=== PATIENT | male | born 1965 | race African-American/Black ===

== ENCOUNTER 2020-02-09 08:09 | Inpatient (IN) ==
[2020-02-09 09:20] LABS: Basophils % 0.6 % (0.0-0.8); Eosinophils # 0.1 10*3/uL (0.0-0.87); Eosinophils % 1.8 % (0.00-10.9); Hematocrit 38.4 VOL% (42.0-52.0); Hemoglobin 11.6 GM/DL (14.0-18.0); Immature Granulocytes % 0.2 %; Immature Granulocytes Absolute 0.01 #; Lymphocytes # 1.3 10*3/uL (1.4-4.0); Lymphocytes % 25.1 % (21.2-54.2); Mean Corpuscular HGB Conc 30.2 GM/DL (32-36); Mean Corpuscular Volume 93.4 FL (87-102); Mean Platelet Volume 10.3 FL (9.6-12.0); Monocytes % 9.1 % (1.7-12.7); Neutrophils % 63.2 % (38.7-73.9); Platelet Count 218 T/CUMM (130-400); Red Blood Count 4.11 MC/CUMM (3.8-5.5); Red Cell Distribution Width 19.8 % (9.3-17.3); White Blood Count 5.1 T/CUMM (4-12)
[2020-02-09 09:43] LABS: Bilirubin,Total 0.9 MG/DL (0.2-1.0); Calcium 8.8 MG/DL (8.5-10.1); Osmolality,Calculated 278.3 MOS/KG (273-304); Total Protein 7.5 G/DL (6.4-8.3)
[2020-02-09] MEDS ORDERED: ASPIRIN CHEW 81 MG TABLET PO STA (09:52)
[2020-02-09] MEDS ORDERED: ENOXAPARIN 100 MG/ML SYRINGE SUBCUT STA (09:52)
[2020-02-09] MEDS ORDERED: methylPREDNISolone SOD SUC 125 MG/2 ML VIAL IV STA (09:52)
[2020-02-09] MEDS ORDERED: GLUCAGON 1 MG VIAL IM PRN (11:04)
[2020-02-09] MEDS ORDERED: ONDANSETRON 4 MG/2 ML VIAL IV PRN (11:04)
[2020-02-09] MEDS ORDERED: DEXTROSE 50% 25 GM/50 ML VIAL IV PRN (11:04)
[2020-02-09 11:55] LABS: Risk Ratio 3.86; Thyroid Stimulating Hormone 0.608 uIU/ml (0.358-3.74); VLDL CHOLESTEROL 19.4 MG/DL
[2020-02-09] MEDS ORDERED: METOPROLOL TARTRATE 25 MG TABLET PO SCH (12:30)
[2020-02-09 13:30] LABS: Troponin I 0.334 NG/ML (0.00-0.045)
[2020-02-09] MEDS: MORPHINE 4 MG/1 ML VIAL IV PRN (14:46)
[2020-02-09 15:37] LABS: Troponin I 0.343 NG/ML (0.00-0.045)
[2020-02-09 16:01] LABS: Barbiturates Screen,Urine Negative (Negative); Benzodiazepines Screen,Urine Negative (Negative); Cannabinoid Screen,Urine Positive (Negative); Opiate Screen,Urine Negative (Negative); Phencyclidine Screen,Urine Negative (Negative)
[2020-02-09] MEDS: GABAPENTIN 100 MG CAPSULE PO SCH ×2 (16:13→21:40)
[2020-02-09] MEDS: BUMETANIDE 1 MG/4 ML VIAL IV SCH (16:13)
[2020-02-09] MEDS: carvediloL 3.125 MG TABLET PO SCH (18:08)
[2020-02-09 19:38] LABS: Troponin I 0.315 NG/ML (0.00-0.045)
[2020-02-09] MEDS ORDERED: NICOTINE 7 MG/24 HR PATCH TRANSDERM PRN (20:47)
[2020-02-09] MEDS ORDERED: NICOTINE 21 MG/24 HR PATCH TRANSDERM PRN (22:00)
[2020-02-10] MEDS: carvediloL 3.125 MG TABLET PO SCH ×4 (00:40→18:18)
[2020-02-10 01:15] LABS: Basophils % 0.2 % (0.0-0.8); Hematocrit 41.8 VOL% (42.0-52.0); Hemoglobin 12.6 GM/DL (14.0-18.0); Immature Granulocytes % 0.4 %; Immature Granulocytes Absolute 0.02 #; Lymphocytes % 20.2 % (21.2-54.2); Mean Corpuscular HGB Conc 30.1 GM/DL (32-36); Mean Corpuscular Volume 93.3 FL (87-102); Mean Platelet Volume 10.2 FL (9.6-12.0); Monocytes % 5.2 % (1.7-12.7); Platelet Count 244 T/CUMM (130-400); Red Blood Count 4.48 MC/CUMM (3.8-5.5); Red Cell Distribution Width 19.9 % (9.3-17.3)
[2020-02-10 01:29] LABS: Calcium 9.3 MG/DL (8.5-10.1)
[2020-02-10] MEDS: MORPHINE 4 MG/1 ML VIAL IV PRN ×3 (05:04→11:16)
[2020-02-10] MEDS: BUMETANIDE 1 MG/4 ML VIAL IV SCH ×2 (09:41→16:09)
[2020-02-10] MEDS: GABAPENTIN 100 MG CAPSULE PO SCH ×3 (09:42→21:22)
[2020-02-10] MEDS: PANTOPRAZOLE 40 MG TABLET PO SCH (09:42)
[2020-02-10] MEDS: ENOXAPARIN 40 MG/0.4 ML SYRINGE SUBCUT SCH (09:42)
[2020-02-10] MEDS: LOSARTAN 25 MG TABLET PO SCH (09:42)
[2020-02-10] MEDS: ASPIRIN EC 81 MG TABLET PO SCH (09:43)
[2020-02-10] MEDS ORDERED: MORPHINE 4 MG/1 ML VIAL IV PRN (14:43)
[2020-02-10] MEDS: PYRIDOSTIGMINE 60 MG TABLET PO SCH (21:22)
[2020-02-10] MEDS: IMMUNE GLOBULIN 10% 20 GM, IMMUNE GLOBULIN 10% 10 GM in PREMIX 1 EACH IV SCH (21:22)
[2020-02-11] MEDS: carvediloL 3.125 MG TABLET PO SCH ×4 (01:53→20:25)
[2020-02-11 05:47] LABS: Basophils % 0.4 % (0.0-0.8); Eosinophils % 0.6 % (0.00-10.9); Hematocrit 37.8 VOL% (42.0-52.0); Hemoglobin 11.6 GM/DL (14.0-18.0); Immature Granulocytes % 0.2 %; Immature Granulocytes Absolute 0.01 #; Lymphocytes # 1.5 10*3/uL (1.4-4.0); Lymphocytes % 28.1 % (21.2-54.2); Mean Corpuscular HGB Conc 30.7 GM/DL (32-36); Monocytes % 8.2 % (1.7-12.7); Neutrophils % 62.5 % (38.7-73.9); Platelet Count 235 T/CUMM (130-400); Red Cell Distribution Width 19.5 % (9.3-17.3); White Blood Count 5.4 T/CUMM (4-12)
[2020-02-11] MEDS: GABAPENTIN 100 MG CAPSULE PO SCH ×3 (08:27→20:25)
[2020-02-11] MEDS: predniSONE 10 MG TABLET PO SCH (08:27)
[2020-02-11] MEDS: LOSARTAN 25 MG TABLET PO SCH (08:27)
[2020-02-11] MEDS: ASPIRIN EC 81 MG TABLET PO SCH (08:27)
[2020-02-11] MEDS: PYRIDOSTIGMINE 60 MG TABLET PO SCH ×3 (08:27→20:26)
[2020-02-11] MEDS: PANTOPRAZOLE 40 MG TABLET PO SCH (08:27)
[2020-02-11] MEDS: ENOXAPARIN 40 MG/0.4 ML SYRINGE SUBCUT SCH (08:34)
[2020-02-11] MEDS: BUMETANIDE 1 MG/4 ML VIAL IV SCH ×2 (08:34→16:53)
[2020-02-11] MEDS: HydrOXYzine PAMOATE 25 MG CAPSULE PO PRN ×2 (11:39→20:26)
[2020-02-11 15:21] LABS: Calcium 9.4 MG/DL (8.5-10.1); Osmolality,Calculated 272.1 MOS/KG (273-304)
[2020-02-11] MEDS: IMMUNE GLOBULIN 10% 20 GM, IMMUNE GLOBULIN 10% 10 GM in PREMIX 1 EACH IV SCH (20:24)
[2020-02-12 02:09] LABS: Basophils % 0.3 % (0.0-0.8); Eosinophils % 0.7 % (0.00-10.9); Hematocrit 37.6 VOL% (42.0-52.0); Hemoglobin 11.7 GM/DL (14.0-18.0); Immature Granulocytes % 0.2 %; Immature Granulocytes Absolute 0.01 #; Lymphocytes # 1.8 10*3/uL (1.4-4.0); Lymphocytes % 30.2 % (21.2-54.2); Mean Corpuscular HGB Conc 31.1 GM/DL (32-36); Mean Corpuscular Volume 89.7 FL (87-102); Mean Platelet Volume 10.2 FL (9.6-12.0); Monocytes % 10.4 % (1.7-12.7); Neutrophils % 58.2 % (38.7-73.9); Platelet Count 232 T/CUMM (130-400); Red Blood Count 4.19 MC/CUMM (3.8-5.5); Red Cell Distribution Width 19.4 % (9.3-17.3); White Blood Count 5.9 T/CUMM (4-12)
[2020-02-12 02:38] LABS: Calcium 8.3 MG/DL (8.5-10.1); Osmolality,Calculated 277.8 MOS/KG (273-304)
[2020-02-12] MEDS: ASPIRIN EC 81 MG TABLET PO SCH (08:50)
[2020-02-12] MEDS: carvediloL 3.125 MG TABLET PO SCH ×2 (08:50→20:29)
[2020-02-12] MEDS: PANTOPRAZOLE 40 MG TABLET PO SCH (08:50)
[2020-02-12] MEDS: predniSONE 10 MG TABLET PO SCH (08:50)
[2020-02-12] MEDS: BUMETANIDE 1 MG/4 ML VIAL IV SCH ×2 (08:50→15:02)
[2020-02-12] MEDS: GABAPENTIN 100 MG CAPSULE PO SCH ×3 (08:50→20:28)
[2020-02-12] MEDS: LOSARTAN 25 MG TABLET PO SCH (08:50)
[2020-02-12] MEDS: PYRIDOSTIGMINE 60 MG TABLET PO SCH ×3 (08:50→20:29)
[2020-02-12] MEDS: ENOXAPARIN 40 MG/0.4 ML SYRINGE SUBCUT SCH (08:52)
[2020-02-12] MEDS: IMMUNE GLOBULIN 10% 20 GM, IMMUNE GLOBULIN 10% 10 GM in PREMIX 1 EACH IV SCH (20:41)
[2020-02-13] MEDS: oxyCODONE/ACETAMINOPHEN 5-325 MG TABLET PO PRN ×2 (02:57→20:35)
[2020-02-13] MEDS: PYRIDOSTIGMINE 60 MG TABLET PO SCH ×3 (08:54→20:31)
[2020-02-13] MEDS: HydrOXYzine PAMOATE 25 MG CAPSULE PO PRN ×2 (08:54→16:51)
[2020-02-13] MEDS: PANTOPRAZOLE 40 MG TABLET PO SCH (08:54)
[2020-02-13] MEDS: predniSONE 10 MG TABLET PO SCH (08:54)
[2020-02-13] MEDS: GABAPENTIN 100 MG CAPSULE PO SCH ×3 (08:54→20:31)
[2020-02-13] MEDS: ASPIRIN EC 81 MG TABLET PO SCH (08:54)
[2020-02-13] MEDS: ENOXAPARIN 40 MG/0.4 ML SYRINGE SUBCUT SCH (08:55)
[2020-02-13] MEDS: BUMETANIDE 1 MG/4 ML VIAL IV SCH ×2 (08:55→16:51)
[2020-02-13] MEDS: LOSARTAN 25 MG TABLET PO SCH (08:55)
[2020-02-13] MEDS: carvediloL 3.125 MG TABLET PO SCH ×2 (08:55→20:31)
[2020-02-13 10:59] LABS: Basophils % 0.6 % (0.0-0.8); Eosinophils # 0.1 10*3/uL (0.0-0.87); Eosinophils % 2.1 % (0.00-10.9); Hematocrit 36.4 VOL% (42.0-52.0); Hemoglobin 11.4 GM/DL (14.0-18.0); Immature Granulocytes % 0.2 %; Immature Granulocytes Absolute 0.01 #; Lymphocytes # 1.5 10*3/uL (1.4-4.0); Lymphocytes % 32.3 % (21.2-54.2); Mean Corpuscular HGB Conc 31.3 GM/DL (32-36); Mean Corpuscular Volume 90.5 FL (87-102); Mean Platelet Volume 10.5 FL (9.6-12.0); Monocytes % 9.5 % (1.7-12.7); Neutrophils % 55.3 % (38.7-73.9); Platelet Count 231 T/CUMM (130-400); Red Blood Count 4.02 MC/CUMM (3.8-5.5); Red Cell Distribution Width 19.4 % (9.3-17.3); White Blood Count 4.7 T/CUMM (4-12)
[2020-02-13 11:19] LABS: Calcium 8.2 MG/DL (8.5-10.1); Osmolality,Calculated 275.7 MOS/KG (273-304)
[2020-02-14 06:08] LABS: Basophils % 0.8 % (0.0-0.8); Eosinophils # 0.1 10*3/uL (0.0-0.87); Eosinophils % 2.1 % (0.00-10.9); Hematocrit 34.2 VOL% (42.0-52.0); Hemoglobin 10.6 GM/DL (14.0-18.0); Immature Granulocytes % 0.3 %; Immature Granulocytes Absolute 0.01 #; Lymphocytes # 1.3 10*3/uL (1.4-4.0); Lymphocytes % 33.8 % (21.2-54.2); Mean Corpuscular Volume 89.3 FL (87-102); Mean Platelet Volume 10.1 FL (9.6-12.0); Monocytes % 10.3 % (1.7-12.7); Neutrophils % 52.7 % (38.7-73.9); Platelet Count 205 T/CUMM (130-400); Red Blood Count 3.83 MC/CUMM (3.8-5.5); Red Cell Distribution Width 19.3 % (9.3-17.3); White Blood Count 3.9 T/CUMM (4-12)
[2020-02-14 06:52] LABS: Calcium 8.4 MG/DL (8.5-10.1); Osmolality,Calculated 280.5 MOS/KG (273-304)
[2020-02-14] MEDS: GABAPENTIN 100 MG CAPSULE PO SCH ×2 (08:21→16:34)
[2020-02-14] MEDS: PYRIDOSTIGMINE 60 MG TABLET PO SCH ×2 (08:21→16:34)
[2020-02-14] MEDS: carvediloL 3.125 MG TABLET PO SCH (08:22)
[2020-02-14] MEDS: predniSONE 10 MG TABLET PO SCH (08:22)
[2020-02-14] MEDS: BUMETANIDE 1 MG/4 ML VIAL IV SCH ×2 (08:22→16:34)
[2020-02-14] MEDS: LOSARTAN 25 MG TABLET PO SCH (08:22)
[2020-02-14] MEDS: PANTOPRAZOLE 40 MG TABLET PO SCH (08:22)
[2020-02-14] MEDS: ASPIRIN EC 81 MG TABLET PO SCH (08:22)
[2020-02-14] MEDS: ENOXAPARIN 40 MG/0.4 ML SYRINGE SUBCUT SCH (08:22)
[2020-02-14 16:02] VITALS: BP 103/59
== END 2020-02-14 16:50 | disposition home health service (06) | DRG 291 ==
LOC: N.ED 08:09 → N.EDINP 08:09 → N.TELES 10:58 → SUATTDRO 12:42
PROVIDERS: ADMIT Internal Medicine; ATTEND Internal Medicine

== ENCOUNTER 2020-03-07 08:12 | Inpatient (IN) ==
[2020-03-07] MEDS ORDERED: BUMETANIDE 1 MG/4 ML VIAL IV STA (08:48)
[2020-03-07 09:34] LABS: Basophils % 0.7 % (0.0-0.8); Eosinophils # 0.1 10*3/uL (0.0-0.87); Eosinophils % 3.2 % (0.00-10.9); Hematocrit 36.6 VOL% (42.0-52.0); Hemoglobin 11.4 GM/DL (14.0-18.0); Lymphocytes # 1.4 10*3/uL (1.4-4.0); Lymphocytes % 35.9 % (21.2-54.2); Mean Corpuscular HGB Conc 31.1 GM/DL (32-36); Mean Corpuscular Volume 89.1 FL (87-102); Mean Platelet Volume 10.4 FL (9.6-12.0); Monocytes % 13.2 % (1.7-12.7); Platelet Count 213 T/CUMM (130-400); Red Blood Count 4.11 MC/CUMM (3.8-5.5); Red Cell Distribution Width 20.4 % (9.3-17.3)
[2020-03-07] MEDS ORDERED: NITROGLYCERIN SL 0.4 MG TABLET SL PRN (09:38)
[2020-03-07 09:48] LABS: INR 1.5; PT Patient Result 15.2 SECS (9.8-11.9); Partial Thromboplastin Time 30.5 SECS (23.9-33.8)
[2020-03-07 09:53] LABS: Albumin 3.2 G/DL (3.4-5.0); Bilirubin,Total 2.1 MG/DL (0.2-1.0); Calcium 8.9 MG/DL (8.5-10.1); Osmolality,Calculated 273.7 MOS/KG (273-304); Total Protein 7.6 G/DL (6.4-8.3)
[2020-03-07 10:24] LABS: Anisocytosis Slight; Atypical Lymphocytes Few; Band Neutrophils 2 % (0-10); Eosinophils 3 % (0-10); Lymphocytes 39 % (20-55); Platelet Estimate Normal; Segmented Neutrophils 43 % (50-85); Total Cells Counted 100
[2020-03-07 10:26] LABS: Apearance,Urine CLEAR (Clear); Bilirubin,Urine Negative (Negative); Blood, Urine Negative (Negative); Glucose,Urine (UA) Negative (Negative); Ketones,Urine Negative (Negative); Mucus,Urine Occasional /LPF (Occasional); Nitrite,Urine Negative (Negative); Protein,Urine Negative; RBC,Urine 1 /HPF (0-4); Urine Color Yellow (Yellow); Urine Specific Gravity 1.006 (1.001-1.035); Urine Urobilinogen < 2.0 EU/DL (0.2-1.0); WBC,Urine <1 /HPF (0-6)
[2020-03-07 10:27] LABS: Barbiturates Screen,Urine Negative (Negative); Benzodiazepines Screen,Urine Negative (Negative); Cannabinoid Screen,Urine Positive (Negative); Opiate Screen,Urine Negative (Negative); Phencyclidine Screen,Urine Negative (Negative)
[2020-03-07] MEDS ORDERED: ACETAMINOPHEN 325 MG TABLET PO PRN (11:53)
[2020-03-07] MEDS ORDERED: ONDANSETRON 4 MG/2 ML VIAL IV PRN (11:53)
[2020-03-07] MEDS ORDERED: LACTULOSE 20 GM/30 ML UDCUP PO PRN (11:53)
[2020-03-07] MEDS ORDERED: DOCUSATE SODIUM 100 MG CAPSULE PO PRN (11:53)
[2020-03-07] MEDS ORDERED: GLUCAGON 1 MG VIAL IM PRN (11:53)
[2020-03-07] MEDS ORDERED: DEXTROSE 10% 250 ML BAG IV PRN (11:53)
[2020-03-07] MEDS: GABAPENTIN 100 MG CAPSULE PO SCH ×2 (15:11→20:42)
[2020-03-07] MEDS: PYRIDOSTIGMINE 60 MG TABLET PO SCH ×2 (15:11→20:42)
[2020-03-07] MEDS: BUMETANIDE 1 MG/4 ML VIAL IV SCH (16:04)
[2020-03-07] MEDS ORDERED: carvediloL 3.125 MG TABLET PO SCH (17:00)
[2020-03-07] MEDS: NICOTINE 21 MG/24 HR PATCH TRANSDERM SCH (17:21)
[2020-03-07] MEDS: ENOXAPARIN 40 MG/0.4 ML SYRINGE SUBCUT SCH (20:42)
[2020-03-07] MEDS: HydrOXYzine PAMOATE 25 MG CAPSULE PO PRN (22:27)
[2020-03-08 06:45] LABS: Basophils # 0.1 10*3/uL (0.0-0.2); Basophils % 1.3 % (0.0-0.8); Eosinophils # 0.1 10*3/uL (0.0-0.87); Eosinophils % 3.5 % (0.00-10.9); Hematocrit 35.2 VOL% (42.0-52.0); Immature Granulocytes % 0.3 %; Immature Granulocytes Absolute 0.01 #; Lymphocytes # 1.3 10*3/uL (1.4-4.0); Lymphocytes % 35.8 % (21.2-54.2); Mean Corpuscular HGB Conc 31.3 GM/DL (32-36); Mean Corpuscular Volume 89.1 FL (87-102); Mean Platelet Volume 10.3 FL (9.6-12.0); Monocytes % 13.4 % (1.7-12.7); Neutrophils % 45.7 % (38.7-73.9); Platelet Count 214 T/CUMM (130-400); Red Blood Count 3.95 MC/CUMM (3.8-5.5); Red Cell Distribution Width 20.2 % (9.3-17.3); White Blood Count 3.7 T/CUMM (4-12)
[2020-03-08 07:06] LABS: Platelet Estimate Normal
[2020-03-08 07:07] LABS: Anisocytosis 1+; Macrocytosis 1+; Target Cells Few
[2020-03-08 07:08] LABS: Polychromasia Slight
[2020-03-08 07:23] LABS: Albumin 2.7 G/DL (3.4-5.0); Bilirubin,Total 1.3 MG/DL (0.2-1.0); Calcium 8.5 MG/DL (8.5-10.1); Osmolality,Calculated 270.2 MOS/KG (273-304); Risk Ratio 4.78; Thyroid Stimulating Hormone 0.635 uIU/ml (0.358-3.74); Total Protein 7.1 G/DL (6.4-8.3)
[2020-03-08] MEDS ORDERED: POTASSIUM CHLORIDE 20 MEQ TABLET PO ONE (08:26)
[2020-03-08] MEDS ORDERED: TUBERCULIN SKIN TEST 0.1 ML SYRINGE INTRADERM ONE (08:41)
[2020-03-08] MEDS ORDERED: oxyCODONE/ACETAMINOPHEN 5-325 MG TABLET PO ONE (09:12)
[2020-03-08] MEDS: GABAPENTIN 100 MG CAPSULE PO SCH ×3 (09:30→21:36)
[2020-03-08] MEDS: BUMETANIDE 1 MG/4 ML VIAL IV SCH ×2 (09:31→16:10)
[2020-03-08] MEDS: PYRIDOSTIGMINE 60 MG TABLET PO SCH ×3 (09:32→21:37)
[2020-03-08] MEDS: LOSARTAN 25 MG TABLET PO SCH (09:32)
[2020-03-08] MEDS: PANTOPRAZOLE 40 MG TABLET PO SCH (09:33)
[2020-03-08] MEDS: NICOTINE 21 MG/24 HR PATCH TRANSDERM SCH (09:33)
[2020-03-08] MEDS: ASPIRIN EC 81 MG TABLET PO SCH (09:38)
[2020-03-08] MEDS: carvediloL 3.125 MG TABLET PO SCH ×2 (09:38→21:37)
[2020-03-08] MEDS: oxyCODONE/ACETAMINOPHEN 5-325 MG TABLET PO PRN (16:10)
[2020-03-08] MEDS: HydrOXYzine PAMOATE 25 MG CAPSULE PO PRN (21:37)
[2020-03-08] MEDS: ENOXAPARIN 40 MG/0.4 ML SYRINGE SUBCUT SCH (21:37)
[2020-03-09 06:44] LABS: Basophils % 1.2 % (0.0-0.8); Eosinophils # 0.1 10*3/uL (0.0-0.87); Eosinophils % 4.2 % (0.00-10.9); Hematocrit 33.5 VOL% (42.0-52.0); Hemoglobin 10.7 GM/DL (14.0-18.0); Immature Granulocytes % 0.3 %; Immature Granulocytes Absolute 0.01 #; Lymphocytes # 1.2 10*3/uL (1.4-4.0); Lymphocytes % 37.2 % (21.2-54.2); Mean Corpuscular HGB Conc 31.9 GM/DL (32-36); Mean Corpuscular Volume 87.9 FL (87-102); Mean Platelet Volume 10.5 FL (9.6-12.0); Monocytes % 12.4 % (1.7-12.7); Neutrophils % 44.7 % (38.7-73.9); Platelet Count 200 T/CUMM (130-400); Red Blood Count 3.81 MC/CUMM (3.8-5.5); Red Cell Distribution Width 20.2 % (9.3-17.3); White Blood Count 3.3 T/CUMM (4-12)
[2020-03-09 07:11] LABS: Anisocytosis 1+; Atypical Lymphocytes Few; Eosinophils 9 % (0-10); Hypochromasia 1+; Lymphocytes 40 % (20-55); Microcytosis 1+; Segmented Neutrophils 42 % (50-85); Total Cells Counted 100
[2020-03-09 07:12] LABS: Ovalocytes Slight; Platelet Estimate Normal; Polychromasia Slight
[2020-03-09 07:13] LABS: Albumin 2.5 G/DL (3.4-5.0); Bilirubin,Total 0.8 MG/DL (0.2-1.0); Calcium 8.4 MG/DL (8.5-10.1); Osmolality,Calculated 267.2 MOS/KG (273-304); Total Protein 6.9 G/DL (6.4-8.3)
[2020-03-09] MEDS: predniSONE 10 MG TABLET PO SCH (08:50)
[2020-03-09] MEDS: carvediloL 3.125 MG TABLET PO SCH ×2 (08:50→20:49)
[2020-03-09] MEDS: oxyCODONE/ACETAMINOPHEN 5-325 MG TABLET PO PRN ×2 (08:50→20:53)
[2020-03-09] MEDS: HydrOXYzine PAMOATE 25 MG CAPSULE PO PRN (08:50)
[2020-03-09] MEDS: PANTOPRAZOLE 40 MG TABLET PO SCH (08:50)
[2020-03-09] MEDS: PYRIDOSTIGMINE 60 MG TABLET PO SCH ×3 (08:50→20:49)
[2020-03-09] MEDS: ASPIRIN EC 81 MG TABLET PO SCH (08:50)
[2020-03-09] MEDS: GABAPENTIN 400 MG CAPSULE PO SCH ×3 (08:50→20:49)
[2020-03-09] MEDS: BUMETANIDE 1 MG/4 ML VIAL IV SCH (08:51)
[2020-03-09] MEDS: NICOTINE 21 MG/24 HR PATCH TRANSDERM SCH (08:52)
[2020-03-09] MEDS: LOSARTAN 25 MG TABLET PO SCH (09:20)
[2020-03-09] MEDS: BUMETANIDE 1 MG TABLET PO SCH (16:14)
[2020-03-09] MEDS: ENOXAPARIN 40 MG/0.4 ML SYRINGE SUBCUT SCH (20:49)
[2020-03-10] MEDS: oxyCODONE/ACETAMINOPHEN 5-325 MG TABLET PO PRN ×2 (04:29→20:39)
[2020-03-10 07:12] LABS: Basophils % 0.8 % (0.0-0.8); Eosinophils # 0.1 10*3/uL (0.0-0.87); Eosinophils % 3.8 % (0.00-10.9); Hematocrit 33.2 VOL% (42.0-52.0); Hemoglobin 10.3 GM/DL (14.0-18.0); Immature Granulocytes % 0.3 %; Immature Granulocytes Absolute 0.01 #; Lymphocytes # 1.3 10*3/uL (1.4-4.0); Lymphocytes % 35.8 % (21.2-54.2); Mean Corpuscular Volume 90.2 FL (87-102); Mean Platelet Volume 9.8 FL (9.6-12.0); Monocytes % 12.1 % (1.7-12.7); Neutrophils % 47.2 % (38.7-73.9); Platelet Count 211 T/CUMM (130-400); Red Blood Count 3.68 MC/CUMM (3.8-5.5); Red Cell Distribution Width 20.1 % (9.3-17.3); White Blood Count 3.7 T/CUMM (4-12)
[2020-03-10 07:30] LABS: Calcium 8.7 MG/DL (8.5-10.1); Osmolality,Calculated 269.1 MOS/KG (273-304)
[2020-03-10 07:34] LABS: Albumin 2.7 G/DL (3.4-5.0); Bilirubin,Total 2.4 MG/DL (0.2-1.0); Calcium 8.7 MG/DL (8.5-10.1); Osmolality,Calculated 274.7 MOS/KG (273-304); Total Protein 6.6 G/DL (6.4-8.3)
[2020-03-10 07:35] LABS: Eosinophils 4 % (0-10); Hypochromasia 1+; Lymphocytes 33 % (20-55); Platelet Estimate Adequate; Segmented Neutrophils 59 % (50-85); Total Cells Counted 100
[2020-03-10 07:36] LABS: Atypical Lymphocytes Few; Microcytosis 1+
[2020-03-10] MEDS ORDERED: BISACODYL 5 MG TABLET PO ONE (07:51)
[2020-03-10] MEDS ORDERED: MAGNESIUM HYDROXIDE SUSP 30 ML UDCUP PO ONE (07:54)
[2020-03-10] MEDS: GABAPENTIN 400 MG CAPSULE PO SCH ×3 (09:45→20:35)
[2020-03-10] MEDS: BUMETANIDE 1 MG TABLET PO SCH ×2 (09:45→16:15)
[2020-03-10] MEDS: ASPIRIN EC 81 MG TABLET PO SCH (09:45)
[2020-03-10] MEDS: PANTOPRAZOLE 40 MG TABLET PO SCH (09:45)
[2020-03-10] MEDS: NICOTINE 21 MG/24 HR PATCH TRANSDERM SCH (09:46)
[2020-03-10] MEDS: LOSARTAN 25 MG TABLET PO SCH (09:46)
[2020-03-10] MEDS: carvediloL 3.125 MG TABLET PO SCH ×2 (09:46→20:35)
[2020-03-10] MEDS: predniSONE 10 MG TABLET PO SCH (09:46)
[2020-03-10] MEDS: PYRIDOSTIGMINE 60 MG TABLET PO SCH ×3 (09:46→20:35)
[2020-03-10] MEDS: LINACLOTIDE 145 MCG CAPSULE PO SCH (10:20)
[2020-03-10] MEDS: ENOXAPARIN 40 MG/0.4 ML SYRINGE SUBCUT SCH (20:35)
[2020-03-10] MEDS: HydrOXYzine PAMOATE 25 MG CAPSULE PO PRN (20:39)
[2020-03-11] MEDS: NICOTINE 21 MG/24 HR PATCH TRANSDERM SCH (09:13)
[2020-03-11] MEDS: carvediloL 3.125 MG TABLET PO SCH ×2 (09:14→21:16)
[2020-03-11] MEDS: PANTOPRAZOLE 40 MG TABLET PO SCH (09:14)
[2020-03-11] MEDS: LINACLOTIDE 145 MCG CAPSULE PO SCH (09:14)
[2020-03-11] MEDS: BUMETANIDE 1 MG TABLET PO SCH ×2 (09:14→16:05)
[2020-03-11] MEDS: LOSARTAN 25 MG TABLET PO SCH (09:14)
[2020-03-11] MEDS: predniSONE 10 MG TABLET PO SCH (09:15)
[2020-03-11] MEDS: ASPIRIN EC 81 MG TABLET PO SCH (09:15)
[2020-03-11] MEDS: GABAPENTIN 400 MG CAPSULE PO SCH ×3 (09:15→21:16)
[2020-03-11] MEDS: oxyCODONE/ACETAMINOPHEN 5-325 MG TABLET PO PRN ×2 (09:24→21:17)
[2020-03-11] MEDS: HydrOXYzine PAMOATE 25 MG CAPSULE PO PRN ×2 (09:25→21:16)
[2020-03-11] MEDS: PYRIDOSTIGMINE 60 MG TABLET PO SCH ×3 (09:25→21:16)
[2020-03-11] MEDS: ENOXAPARIN 40 MG/0.4 ML SYRINGE SUBCUT SCH (21:16)
[2020-03-12] MEDS: HydrOXYzine PAMOATE 25 MG CAPSULE PO PRN (07:53)
[2020-03-12] MEDS: BUMETANIDE 1 MG TABLET PO SCH (07:54)
[2020-03-12] MEDS: LINACLOTIDE 145 MCG CAPSULE PO SCH (07:54)
[2020-03-12] MEDS: PYRIDOSTIGMINE 60 MG TABLET PO SCH (08:00)
[2020-03-12 08:44] VITALS: BP 100/80
[2020-03-12] MEDS: ASPIRIN EC 81 MG TABLET PO SCH (08:52)
[2020-03-12] MEDS: PANTOPRAZOLE 40 MG TABLET PO SCH (08:52)
[2020-03-12] MEDS: carvediloL 3.125 MG TABLET PO SCH (08:52)
[2020-03-12] MEDS: GABAPENTIN 400 MG CAPSULE PO SCH (08:52)
[2020-03-12] MEDS: NICOTINE 21 MG/24 HR PATCH TRANSDERM SCH (08:53)
[2020-03-12] MEDS: predniSONE 10 MG TABLET PO SCH (08:53)
[2020-03-12] MEDS: LOSARTAN 25 MG TABLET PO SCH (08:55)
== END 2020-03-12 09:57 | DRG 293 ==
LOC: N.ED 08:12 → N.EDINP 11:53 → SUATTDRO 11:53 → N.TELEN 12:46
PROVIDERS: ADMIT Internal Medicine Critical Care Medicine; ATTEND Internal Medicine